=== PATIENT | female | born 1990 | race African-American/Black ===

== ENCOUNTER 2017-02-07 10:11 | Emergency (ER) | payer OTHER ==
[~2017-02-07] VITALS: Ht 157.5 cm; Wt 127.0 kg
[~2017-02-07 10:11] MED LIST: CITRATE OF MAG296 ML PO; CITRUCEL CLEAR539 G1 PO; COLACE100 MG PO; FLAGYL500 MG PO; FLEET ENEMA118 ML RC; FLEXERIL PO; IBUPROFEN 600600 M1 PO; NOHOMEMEDICATIONS; NORCO 5-325 TA1 EACH PO; PHENERGAN 25 MG25 M1 PO; PRILOSEC40 MG PO; ZOFRAN4 MG PO
[2017-02-07 10:13] VITALS: BP 137/78
[2017-02-07] MEDS ORDERED: ACETAMINOPHEN325 M1 PO (10:19)
[2017-02-07] MEDS ORDERED: IBUPROFEN 200200 M1 PO (10:19)
[2017-02-07] MEDS ORDERED: FLONASE 0.05%50 MCG NASAL (10:30)
[2017-02-07] MEDS ORDERED: SUDOGEST30 MG PO (10:30)
== END 2017-02-07 10:45 | disposition home or self-care (01) ==
LOC: ER 10:11
DX: J34.89 Other specified disorders of nose and nasal sinuses (principal)

== ENCOUNTER 2018-01-31 02:26 | Emergency (ER) | payer OTHER ==
[~2018-01-31] VITALS: Ht 160 cm; Wt 127.0 kg
[~2018-01-31 02:26] MED LIST changes: +ACETAMINOPHEN325 M1 PO; +FLONASE 0.05%50 MCG NASAL; +IBUPROFEN 200200 M1 PO; +SUDOGEST30 MG PO
[2018-01-31] MEDS ORDERED: ULTRAM 50MG TAB50 MG PO (03:41)
[2018-01-31] MEDS ORDERED: NORFLEX100 MG PO (03:41)
[2018-01-31] MEDS ORDERED: NAPROSYN500 MG PO (03:41)
[2018-01-31 04:13] VITALS: BP 142/97
== END 2018-01-31 04:14 | disposition home or self-care (01) ==
LOC: ER 02:26
DX: H92.01 Otalgia, right ear (principal); G89.29 Other chronic pain; R07.0 Pain in throat; R51 Headache; H93.11 Tinnitus, right ear; F17.210 Nicotine dependence, cigarettes, uncomplicated

== ENCOUNTER 2018-02-20 12:19 | Emergency (ER) | payer OTHER ==
[~2018-02-20] VITALS: Ht 160 cm; Wt 127.0 kg
[~2018-02-20 12:19] MED LIST changes: +NAPROSYN500 MG PO; +NORFLEX100 MG PO; +ULTRAM 50MG TAB50 MG PO
[2018-02-20 12:21] VITALS: BP 174/117
[2018-02-20] MEDS ORDERED: PENICILLIN VK500 M1 PO (12:34)
[2018-02-20] MEDS ORDERED: NORCO 5-325 TA1 EACH PO (12:34)
== END 2018-02-20 13:01 | disposition home or self-care (01) ==
LOC: ER 12:19
DX: M26.621 Arthralgia of right temporomandibular joint (principal); K05.10 Chronic gingivitis, plaque induced; F17.210 Nicotine dependence, cigarettes, uncomplicated; Z98.890 Other specified postprocedural states